=== PATIENT | male | born 1970 | race Caucasian/White ===

== ENCOUNTER 2016-10-25 11:19 | Emergency (ER) | payer OTHER ==
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
[~2016-10-25 11:19] MED LIST: ALBUTEROL17 GM INH; BROMFED DM; DOXYCYCLINE HY100 M1 PO; EC-NAPROSYN500 MG PO; FLEXERIL10 M1 PO; NO MEDICATIONS
[2016-10-27] MEDS ORDERED: HYDROCODON-ACE1 EA14 (09:26)
== END 2016-10-25 11:37 | disposition home or self-care (01) ==
LOC: SED 11:19
DX: S22.32XA Fracture of one rib, left side, initial encounter for closed fracture (principal); S50.812A Abrasion of left forearm, initial encounter; Z23 Encounter for immunization; Z88.0 Allergy status to penicillin; V13.4XXA Pedal cycle driver injured in collision with car, pick-up truck or van in traffic accident, initial encounter; Y92.410 Unspecified street and highway as the place of occurrence of the external cause
CPT/HCPCS: 71100; 72170; 73080; 73090; 73110; 73130; 90471; 90715; 99284

== ENCOUNTER 2016-10-27 09:50 | Emergency (ER) | payer OTHER ==
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
[~2016-10-27 09:50] MED LIST changes: +HYDROCODON-ACE1 EA14
== END 2016-10-27 10:40 | disposition home or self-care (01) ==
LOC: SED 09:50
DX: S16.1XXA Strain of muscle, fascia and tendon at neck level, initial encounter (principal); Z88.0 Allergy status to penicillin; Y92.410 Unspecified street and highway as the place of occurrence of the external cause; V13.4XXA Pedal cycle driver injured in collision with car, pick-up truck or van in traffic accident, initial encounter
CPT/HCPCS: 70450; 72125; 99284